=== PATIENT | male | born 1965 | race African-American/Black ===

== ENCOUNTER 2017-03-27 13:46 | Emergency (ER) | payer SELFPAY ==
[~2017-03-27] VITALS: Ht 162.6 cm; Wt 150.0 kg
[~2017-03-27 13:46] MED LIST: LISI1TAB11 PO
[2017-03-27] MEDS ORDERED: INDO25CA PO (14:05)
[2017-03-27 16:37] LABS: CARBON DIOXIDE 31 mEq/L (21-32); CHLORIDE 101 mEq/L (98-107)
[2017-03-27] MEDS ORDERED: MORPHINE SULFATE 10 MG/ML CPJ IM ONE (19:30)
[2017-03-27] MEDS ORDERED: CLONIDINE 0.1MG TABLET PO ONE (19:30)
[2017-03-27] MEDS ORDERED: ONDANSETRON 4MG ODT PO ONE (19:30)
[2017-03-27 20:19] VITALS: BP 187/100
== END 2017-03-27 20:20 | disposition home or self-care (01) ==
LOC: ER 13:46
DX: M10.9 Gout, unspecified (principal); E66.01 Morbid (severe) obesity due to excess calories; I10 Essential (primary) hypertension; E78.00 Pure hypercholesterolemia, unspecified; Z68.43 Body mass index [BMI] 50.0-59.9, adult
CPT/HCPCS: 36415; 73562; 80048; 84550; 96372; 99285; J2270; Q0162